=== PATIENT | female | born 1980 | race Caucasian/White ===

== ENCOUNTER 2019-12-08 22:21 | Emergency (ER) | payer MEDICAID, SELFPAY ==
[2019-12-08 22:33] VITALS: BP 113/76; PULSE 94; RESP 18; TEMP 36.8; O2SAT 98; BMI 27.4
--- NOTE | 2019-12-08 22:40 | XR_ITS ---
WS: [id number] EXAM: AP CHEST: PORTABLE UPRIGHT DATE OF EXAM: 12/08/2019, 2301 hours COMPARISON: NONE HISTORY: Patient is 39 years old with shortness of breath. FINDINGS: The cardiac silhouette is normal in size. The mediastinal contours are normal. The pulmonary vas cularity is normal. The lungs are clear of infiltrate. There is no effusion or pneumothorax. No ac [place] bony abnormality is seen. XR/XR chest 1V portable [id number] IMPRESSION: No acute pulmonary disease.
== END 2019-12-09 00:22 | disposition left against medical advice (07) ==
LOC: ER 22:33
PROVIDERS: Emergency Provider Emergency Medicine
DX: Z53.21 Procedure and treatment not carried out due to patient leaving prior to being seen by health care provider (principal)
CPT/HCPCS: 71045; 99281